=== PATIENT | female | born 1975 | race Two or more races ===

== ENCOUNTER 2025-06-04 11:55 | Emergency (ER) | payer OTHER ==
[~2025-06-04] VITALS: Ht 170.2 cm; Wt 76.7 kg
[~2025-06-04 11:55] MED LIST: DOLOGEN CAPLET1 EACH PO; LEVSIN0.125 MG PO; MEDROL4 MG PO; PROTONIX40 MG PO; ZANTAC300 MG PO
[2025-06-04] MEDS ORDERED: NIFEDIPINE 10 MG CAPSULE PO ONE ×2 (13:44→13:45)
[2025-06-04 14:15] LABS: BASO % 1.4 % (0.1-1.2); EOS # 0.21 (0.04-0.54); EOS % 3.6 % (0.7-7.0); LYMPH # 2.12 (1.18-3.74); LYMPH % 36.7 % (19.3-53.1); MEAN PLATELET VOLUME 9.20 fl (9.4-12.4); MONO # 0.31 (0.24-0.82); MONO % 5.4 % (4.7-12.5); NEUT # 3.05 (1.56-6.13); NEUT % 52.7 % (34.0-71.1); RED CELL DISTRIBUTION WIDTH 15.2 % (11.6-14.4)
[2025-06-04 14:46] LABS: ALT/SGPT 22.0 U/L (12-78); AST/SGOT 15.0 U/L (15-37); BILIRUBIN TOTAL 0.93 mg/dL (0.3-1.2); BUN CREA RATIO 18.0 (7.0-25.0); CREATININE SERUM 0.6 mg/dL (0.55-1.02); GFR 105.39; GLOBULINA 3.2 G/DL (2.4-3.5); GLUCOSE FASTING 107.0 mg/dL (65-100); OSMOLALITY SERUM 285.0 MOSM/KG (275-295)
[2025-06-04] MEDS ORDERED: KETOROLAC TROMETHAMINE 60 MG VIAL IM ONE ×2 (16:58→17:00)
== END 2025-06-04 17:12 | disposition home or self-care (01) ==
LOC: ER 11:55
PROVIDERS: Preventive Medicine Public Health & General Preventive Medicine
DX: R03.0 Elevated blood-pressure reading, without diagnosis of hypertension (principal); R51.9 Headache, unspecified; I10 Essential (primary) hypertension